=== PATIENT | female | born 1960 | race Caucasian/White ===

== ENCOUNTER 2017-12-19 16:26 | Observation (INO) | payer OTHER ==
[~2017-12-19] VITALS: Ht 165.1 cm; Wt 87.1 kg
[2017-12-19] MEDS ORDERED: ALBUTEROL/IPRATROPIUM 3 ML NEB NEB ONE ×2 (16:45→18:15)
[2017-12-19] MEDS ORDERED: METHYLPREDNISOLONE SOD SUCC 125 MG/2ML VIAL IV ONE (16:45)
[2017-12-19 17:29] LABS: BASOPHILS # (AUTO) 0.1 (0.0-0.1); BASOPHILS % 0.7 % (0.0-1.0); EOSINOPHILS # (AUTO) 0.1 (0.0-0.4); EOSINOPHILS % 0.8 % (0.0-6.0); HEMATOCRIT 40.7 % (34.2-44.1); HEMOGLOBIN 13.8 g/dL (12.0-16.0); LYMPHOCYTES # (AUTO) 0.9 (1.0-3.2); LYMPHOCYTES % 12.5 % (18.0-39.1); MEAN CORPUSCULAR HEMOGLOBIN 30.1 pg (28-32); MEAN CORPUSCULAR HGB CONC 33.9 g/dL (31-35); MEAN CORPUSCULAR VOLUME 88.7 fL (81-99); MONOCYTES # (AUTO) 0.1 (0.2-0.8); NEUTROPHILS % 83.7 % (38.7-80.0); PLATELET COUNT 208 x10e3/uL (140-360); RED BLOOD COUNT 4.59 x10e6/uL (3.6-5.1); RED CELL DISTRIBUTION WIDTH 12.5 % (11.7-14.4)
--- NOTE | 2017-12-19 17:35 | Diagnostic Imaging Report ---
PROCEDURE: CHEST SINGLE (PORTABLE) 1652 hrs. COMPARISON: None. INDICATIONS: SHORTNESS OF BREATHE FINDINGS: LUNGS: No evidence of mass or infiltrate. Mild haziness in the base of the left lung suggestive of atelectasis. PLEURA: No effusions or pneumothorax. HEART \T\ MEDIASTINUM: The heart is normal in size. Pulmonary vascular markings are normal. BONES \T\ SOFT TISSUES: No focal osseous lesions. Soft tissues are unremarkable.. CONCLUSION: Mild left basilar atelectasis. Otherwise normal exam. Dictated by: Rony Nielsen M.D. on 12/19/2017 at 17:45 Electronically approved by: Rony Nielsen M.D. on 12/19/2017 at 17:45
[2017-12-19 17:43] LABS: CREATINE KINASE 93 IU/L (29-168)
[2017-12-19 17:44] LABS: ALBUMIN 4.1 g/dL (3.5-5.0); ALBUMIN/GLOBULIN RATIO 1.1 (0.8-2.0); ANION GAP 13.9 mmol/L (8-16); CALCIUM 8.7 mg/dL (8.4-10.2); CREATININE, SERUM 1.06 mg/dL (0.57-1.11); POTASSIUM 3.9 mmol/L (3.5-5.1)
[2017-12-19] MEDS ORDERED: SODIUM CHLORIDE 0.9% 1000ML 1,000 ML IV ONE (17:45)
[2017-12-19] MEDS ORDERED: SODIUM CHLORIDE 0.9% 1000ML 1,000 ML ONE (17:48)
[2017-12-19] MEDS: ALBUTEROL/IPRATROPIUM 3 ML NEB NEB ONE ×2 (17:50→18:37)
[2017-12-19] MEDS ORDERED: PROMETHAZINE/CODEINE 5 ML UDC PO STA (18:15)
--- OUTSIDE RECORDS SUMMARY | 2017-12-19 19:48 | XMS REPORT ---
[facility] Address Unknown Phone Unavailable Care Team Providers Care Glass Cutter Hand Name Role Phone DEEPA LAZO Unavailable Unavailable Problems This patient has no known problems. Allergies, Adverse Reactions, Alerts This patient has no known allergies or adverse reactions. Medications This patient has no known medications. Results Test Description Test Time Test Comments Text Results Atomic Results Result Comments CHEST SINGLE (PORTABLE) [place] [id number] Patient Name: SHUBHAM ROBERTS MR #: [id number] : 1960 Age/Sex: 57/F Req #: [id number] Adm Physician: Ordered by: BETHEL MELVIN STRUCTURES ASSEMBLER Report #: [id number] Location: ER Room/Bed: Procedure: [id number] DX/CHEST SINGLE (PORTABLE) Exam Date: 12/19/17 Exam Time: 1645 REPORT STATUS: Signed PROCEDURE: CHEST SINGLE (PORTABLE) 1652 hrs. COMPARISON: None. INDICATIONS: SHORTNESS OF BREATHE FINDINGS: LUNGS: No evidence of mass or infiltrate. Mild haziness in the base of the left lung suggestive of atelectasis. PLEURA: No effusions or pneumothorax. HEART T MEDIASTINUM: The heart is normal in size. Pulmonary vascular markings are normal. BONES T SOFT TISSUES: No focal osseous lesions. Soft tissues are unremarkable.. CONCLUSION: Mild left basilar atelectasis. Otherwise normal exam. Dictated by: Krystal Nielsen M.D. on 12/19/2017 at 17:45 Electronically approved by: Krystal Nielsen M.D. on 12/19/2017 at 17:45 Dictated By: KRYSTAL NIELSEN MD 44 Transcribed By : CARLEY on 12/19/171744 COPY TO: BETHEL MELVIN NP
[2017-12-19] MEDS ORDERED: ACETAMINOPHEN 325 MG TAB PO ONE (20:45)
[2017-12-19] MEDS ORDERED: METHYLPREDNISOLONE SOD SUCC 125 MG/2ML VIAL IV SCH (21:00)
[2017-12-19] MEDS: ALBUTEROL/IPRATROPIUM 3 ML NEB NEB SCH (23:00)
[2017-12-20] VITALS (7 sets, daily range): BP systolic 105–131; BP diastolic 54–80
[2017-12-20] MEDS ORDERED: DICLOFENAC SODI75 MG PO (02:39)
[2017-12-20] MEDS ORDERED: BACLOFEN10 MG PO (02:39)
[2017-12-20] MEDS ORDERED: PROAIR HFA INH8.5 GM INH (02:39)
[2017-12-20] MEDS ORDERED: METHYLPREDNISOL40 MG IM (02:39)
[2017-12-20] MEDS ORDERED: VENLAFAXINE HCL75 MG PO (02:39)
[2017-12-20] MEDS ORDERED: SYMBICORT 16010.2 GM INH (02:39)
[2017-12-20] MEDS ORDERED: SYNTHROID100 MCG PO (02:39)
[2017-12-20] MEDS ORDERED: GABAPENTIN300 MG PO (02:39)
[2017-12-20] MEDS: ALBUTEROL/IPRATROPIUM 3 ML NEB NEB SCH ×3 (03:00→11:00)
[2017-12-20 03:13] LABS: CREATINE KINASE MB 0.8 ng/mL (0.00-5.00)
[2017-12-20] MEDS: METHYLPREDNISOLONE SOD SUCC 125 MG/2ML VIAL IV SCH ×2 (04:45→08:20)
[2017-12-20] MEDS: ACETAMINOPHEN 325 MG TAB PO PRN ×3 (08:20→14:27)
[2017-12-20 10:27] LABS: CREATINE KINASE 113 IU/L (29-168)
--- NOTE | 2017-12-20 14:53 | Discharge Summary ---
PCP: Odilia Contreras M.D. FINAL DIAGNOSIS: Asthma exacerbation. SECONDARY DIAGNOSES 1. Hypothyroidism. 2. Chronic back pain. MEDICAL SUPERVISOR: None. PROCEDURES AND STUDIES PERFORMED: None. HISTORY: Per H and P. HOSPITAL COURSE: The patient was admitted overnight with Solu-Medrol and nebulizer treatment. She got better. In talking to her, she is very upset about her 100-pound weight gain due to steroids. Anyway, she will be going home with a nebulizer machine. I have prescribed DuoNeb for her to use. The patient will also get Medrol Dosepak taper. I have updated her primary care doctor as well. Potentially, she may benefit from outpatient pulmonology evaluation. CONDITION ON DISCHARGE: Stable. DISCHARGE MEDICATIONS: Please see medication reconciliation form. MAIK ARCE M.D. Job#: [id number] cc:ODILIA CONTRERAS M.D.
== END 2017-12-20 15:35 | disposition home or self-care (01) ==
LOC: ER 16:26 → ERHOLD 19:46 → IMCU 12-20 00:03
PROVIDERS: ADMIT Internal Medicine; ATTEND Internal Medicine
DX: J45.901 Unspecified asthma with (acute) exacerbation (principal); E03.9 Hypothyroidism, unspecified; G89.29 Other chronic pain
CPT/HCPCS: 36415 ×2; 71045; 80053; 82550 ×2; 82553 ×2; 84484 ×2; 85025; 87400; 93005; 94640 ×2; 99284; G0378 ×2; J2930 ×2; J7030